=== PATIENT | male | born 1950 | race Caucasian/White ===

== ENCOUNTER → 2020-01-18 | Outpatient (CLI) | payer OTHER, MEDICARE | LOC: LAB 13:16 | DX: I48.0 Paroxysmal atrial fibrillation (principal) ==

== ENCOUNTER → 2020-02-08 | Outpatient (CLI) | payer OTHER, MEDICARE ==
[2020-02-09 21:26] LABS: C-ANCA 6 U/mL (0-99)
[2020-02-11 10:38] LABS: ANA SCREEN with REFLEX Negative (Negative)
[2020-02-12 19:39] LABS: A/G RATIO (PEP) 1.07 (())
== END ==
LOC: LAB 15:42
DX: G62.9 Polyneuropathy, unspecified (principal)

== ENCOUNTER → 2020-12-19 | Outpatient (CLI) | payer OTHER, MEDICARE ==
[2020-12-19 07:32] LABS: BASO # 0.02 K/mm3 (0.02-0.10); EOS # 0.09 K/mm3 (0.04-0.40); EOS % 1.5 % (0.0-4.0); HEMATOCRIT 44.9 % (42.0-52.0); HEMOGLOBIN 14.8 g/dL (13.5-18.0); LYMPH# 1.08 K/mm3 (1.50-4.00); MEAN CELL VOLUME 97 fl (78-100); MEAN CORPUSCULAR HEMOGLOBIN 32 pg (27-31); MEAN CORPUSCULAR HGB CONC 33 g/dL (33-37); MEAN PLATELET VOLUME 10.5 fl (7.4-10.4); MONO # 0.75 K/mm3 (0.20-0.80); NEU # 4.06 K/mm3 (1.40-6.50); PLATELET COUNT 116 K/mm3 (130-400); RED BLOOD COUNT 4.61 M/mm3 (4.20-5.60); RED CELL DISTRIBUTION WIDTH 13.4 % (11.5-14.5)
[2020-12-19 07:45] LABS: ALBUMIN 3.9 g/dL (3.4-4.8)
[2020-12-19 07:48] LABS: TOTAL PROTEIN 6.6 g/dL (6.2-8.1)
[2020-12-19 07:50] LABS: TOTAL BILIRUBIN 0.5 mg/dL (0.2-1.2)
[2020-12-19 07:53] LABS: AST-SGOT 32 U/L (5-34); DIRECT BILIRUBIN 0.2 mg/dL (0.0-0.5)
[2020-12-19 07:54] LABS: ALT/SGPT 23 U/L (0-55)
[2020-12-19 08:11] LABS: PROTHROMBIN TIME 22.7 SECONDS (9.0-12.0)
== END ==
LOC: LAB 07:18
DX: I48.0 Paroxysmal atrial fibrillation (principal); M06.9 Rheumatoid arthritis, unspecified; Z79.899 Other long term (current) drug therapy

== ENCOUNTER → 2021-02-05 | Outpatient (CLI) | payer OTHER, MEDICARE ==
[2021-02-05 07:34] LABS: BASO # 0.03 K/mm3 (0.02-0.10); EOS # 0.07 K/mm3 (0.04-0.40); EOS % 1.2 % (0.0-4.0); HEMATOCRIT 44.4 % (42.0-52.0); HEMOGLOBIN 14.7 g/dL (13.5-18.0); LYMPH# 1.13 K/mm3 (1.50-4.00); MEAN CELL VOLUME 98 fl (78-100); MEAN CORPUSCULAR HEMOGLOBIN 32 pg (27-31); MEAN CORPUSCULAR HGB CONC 33 g/dL (33-37); MEAN PLATELET VOLUME 9.1 fl (7.4-10.4); MONO # 0.78 K/mm3 (0.20-0.80); NEU # 4.04 K/mm3 (1.40-6.50); PLATELET COUNT 241 K/mm3 (130-400); RED BLOOD COUNT 4.55 M/mm3 (4.20-5.60); RED CELL DISTRIBUTION WIDTH 13.6 % (11.5-14.5); WHITE BLOOD COUNT 6.1 K/mm3 (4.8-10.8)
[2021-02-05 07:53] LABS: PROTHROMBIN TIME 25.3 SECONDS (9.0-12.0)
== END ==
LOC: LAB 07:19
DX: I48.0 Paroxysmal atrial fibrillation (principal); R97.20 Elevated prostate specific antigen [PSA]; M06.9 Rheumatoid arthritis, unspecified; Z79.899 Other long term (current) drug therapy

== ENCOUNTER → 2021-02-12 | Outpatient (CLI) | payer OTHER, MEDICARE | LOC: RAD 08:43 | DX: S22.41XA Multiple fractures of ribs, right side, initial encounter for closed fracture (principal) ==

== ENCOUNTER → 2021-05-09 | Outpatient (CLI) | payer OTHER, MEDICARE ==
[2021-05-09 08:12] LABS: BASO # 0.03 K/mm3 (0.02-0.10); EOS # 0.05 K/mm3 (0.04-0.40); HEMATOCRIT 45.3 % (42.0-52.0); HEMOGLOBIN 15.3 g/dL (13.5-18.0); LYMPH# 1.01 K/mm3 (1.50-4.00); MEAN CELL VOLUME 98 fl (78-100); MEAN CORPUSCULAR HEMOGLOBIN 33 pg (27-31); MEAN CORPUSCULAR HGB CONC 34 g/dL (33-37); MEAN PLATELET VOLUME 9.3 fl (7.4-10.4); NEU # 3.37 K/mm3 (1.40-6.50); PLATELET COUNT 279 K/mm3 (130-400); RED BLOOD COUNT 4.64 M/mm3 (4.20-5.60); RED CELL DISTRIBUTION WIDTH 12.8 % (11.5-14.5); WHITE BLOOD COUNT 5.2 K/mm3 (4.8-10.8)
[2021-05-09 16:31] LABS: HEPATITIS C ANTIBODY Negative (Negative)
== END ==
LOC: LAB 07:40
DX: M06.9 Rheumatoid arthritis, unspecified (principal)

== ENCOUNTER 2021-06-02 08:15 | Emergency (ER) | payer OTHER, MEDICARE ==
[2021-06-02] MEDS ORDERED: LISINOPRIL AND1 TA1 PO (08:29)
[2021-06-02] MEDS ORDERED: WARFARIN SODIUM6 MG PO (08:30)
[2021-06-02] MEDS ORDERED: CARVEDILOL25 MG PO (08:30)
[2021-06-02] MEDS ORDERED: METHOTREXATE2.5 MG PO (08:30)
[2021-06-02] MEDS ORDERED: ATORVASTATIN CA10 MG PO (08:30)
[2021-06-02] MEDS ORDERED: FLOMAX0.4 MG PO (08:31)
[2021-06-02] MEDS ORDERED: DUTASTERIDE0.5 MG PO (08:31)
[2021-06-02] MEDS ORDERED: GOOD SENSE ASPI81 M1 PO (08:31)
[2021-06-02] MEDS ORDERED: SULFAZINE500 M1 PO (08:31)
[2021-06-02 09:10] LABS: BASO # 0.02 K/mm3 (0.02-0.10); EOS # 0.02 K/mm3 (0.04-0.40); EOS % 0.4 % (0.0-4.0); HEMATOCRIT 42.9 % (42.0-52.0); HEMOGLOBIN 14.2 g/dL (13.5-18.0); LYMPH# 0.61 K/mm3 (1.50-4.00); MEAN CELL VOLUME 97 fl (78-100); MEAN CORPUSCULAR HEMOGLOBIN 32 pg (27-31); MEAN CORPUSCULAR HGB CONC 33 g/dL (33-37); MEAN PLATELET VOLUME 9.6 fl (7.4-10.4); NEU # 3.68 K/mm3 (1.40-6.50); PLATELET COUNT 195 K/mm3 (130-400); RED BLOOD COUNT 4.42 M/mm3 (4.20-5.60); RED CELL DISTRIBUTION WIDTH 12.6 % (11.5-14.5); WHITE BLOOD COUNT 5.3 K/mm3 (4.8-10.8)
[2021-06-02 09:25] LABS: POTASSIUM 3.5 mmol/L (3.5-5.1)
[2021-06-02 09:26] LABS: CALCIUM 9.3 mg/dL (8.3-10.5)
[2021-06-02 09:27] LABS: TOTAL PROTEIN 6.7 g/dL (6.2-8.1)
[2021-06-02 09:29] LABS: TOTAL BILIRUBIN 0.5 mg/dL (0.2-1.2)
[2021-06-02 11:09] LABS: URINE APPEARANCE HAZY; URINE COLOR YELLOW; URINE PROTEIN(semi-quant) TRACE (NEGATIVE)
[2021-06-02 11:10] LABS: URINE BILIRUBIN NEGATIVE (NEGATIVE); URINE BLOOD NEGATIVE (NEGATIVE); URINE GLUCOSE NEGATIVE (NEGATIVE); URINE KETONE NEGATIVE (NEGATIVE); URINE LEUKOCYTE ESTERASE TRACE (NEGATIVE); URINE MUCUS PRESENT (NOT PRESENT); URINE NITRATE NEGATIVE (NEGATIVE); URINE UROBILINOGEN NORMAL (NORMAL)
[2021-06-02] MEDS ORDERED: MORGIDOX 1X100100 MG PO (13:45)
[2021-06-02] MEDS ORDERED: PREDNISONE20 M1 PO (13:45)
[2021-06-02 15:07] VITALS: BP 143/87
== END 2021-06-02 11:50 | disposition home or self-care (01) ==
LOC: ED 08:15
PROVIDERS: Nurse Practitioner
DX: J18.9 Pneumonia, unspecified organism (principal); Z20.822 Contact with and (suspected) exposure to COVID-19
CPT/HCPCS: J7030; J7512

== ENCOUNTER 2021-07-14 14:49 | Outpatient (RCR) | payer OTHER, MEDICARE ==
[~2021-07-14 14:49] MED LIST: ATORVASTATIN CA10 MG PO; CARVEDILOL25 MG PO; DUTASTERIDE0.5 MG PO; FLOMAX0.4 MG PO; GOOD SENSE ASPI81 M1 PO; LISINOPRIL AND1 TA1 PO; METHOTREXATE2.5 MG PO; MORGIDOX 1X100100 MG PO; PREDNISONE20 M1 PO; SULFAZINE500 M1 PO; WARFARIN SODIUM6 MG PO
== END 2021-08-05 | disposition home or self-care (01) ==
LOC: PT
DX: G62.9 Polyneuropathy, unspecified (principal)

== ENCOUNTER → 2021-07-24 | Outpatient (CLI) | payer OTHER, MEDICARE ==
[2021-07-24 16:06] LABS: ALBUMIN 4.4 g/dL (3.4-4.8)
[2021-07-24 16:08] LABS: TOTAL PROTEIN 7.2 g/dL (6.2-8.1)
[2021-07-24 16:10] LABS: TOTAL BILIRUBIN 0.4 mg/dL (0.2-1.2)
[2021-07-24 16:14] LABS: DIRECT BILIRUBIN 0.1 mg/dL (0.0-0.5)
== END ==
LOC: LAB 15:43
DX: M06.9 Rheumatoid arthritis, unspecified (principal)

== ENCOUNTER 2021-08-07 15:00 | Outpatient (RCR) | payer OTHER, MEDICARE | END 2021-09-04 | disposition still patient (30) | LOC: PT | DX: G62.9 Polyneuropathy, unspecified (principal) ==

== ENCOUNTER 2021-09-11 15:29 | Outpatient (RCR) | payer OTHER, MEDICARE | END 2021-10-05 | disposition home or self-care (01) | LOC: PT | DX: G62.9 Polyneuropathy, unspecified (principal) ==

== ENCOUNTER 2021-10-06 08:00 | Outpatient (RCR) | payer OTHER, MEDICARE | END 2021-10-28 15:56 | disposition home or self-care (01) | LOC: PT 08:00 | DX: G62.9 Polyneuropathy, unspecified (principal) ==

== ENCOUNTER → 2022-11-23 | Outpatient (CLI) | payer BC, MEDICARE | LOC: LAB 07:13 | PROVIDERS: Family Medicine | DX: I48.0 Paroxysmal atrial fibrillation (principal) ==

== ENCOUNTER → 2023-07-22 | Outpatient (CLI) | payer BC, MEDICARE | LOC: LAB 08:00 | PROVIDERS: Family Medicine | DX: I48.91 Unspecified atrial fibrillation (principal) ==